=== PATIENT | female | born 2000 | race African-American/Black ===

== ENCOUNTER 2021-03-04 03:30 | Emergency (ER) | payer OTHER ==
[~2021-03-04] VITALS: Ht 149.9 cm; Wt 88.9 kg
[2021-03-04 04:02] LABS: ABSOLUTE EOSINOPHILS 0.2 thou/uL (0.0-0.7); ABSOLUTE LYMPHOCYTES 1.8 thou/uL (0.8-5.3); ABSOLUTE MONOCYTES 0.5 thou/uL (0.0-1.2); ABSOLUTE NEUTROPHILS 5.2 thou/uL (1.6-8.1); BASOPHILS 0.6 %; EOSINOPHILS 2.1 %; HEMATOCRIT 37.2 % (37.0-47.0); HEMOGLOBIN 12.7 gm/dL (12.0-15.0); LYMPHOCYTES 22.9 %; MCH 29.9 pg (26.0-34.0); MCHC 34.1 g/dL (28.0-37.0); MCV 87.6 fL (80.0-100.0); MONOCYTES 6.8 %; MPV 7.8 fl. (7.2-11.1); NUCLEATED RBCS 0 /100WBC; PLATELET COUNT* 266 thou/uL (150-400); POLYS 67.6 %; RBC 4.24 mil/uL (4.20-5.00); RDW-CV 13.3 % (10.5-14.5); WBC 7.7 thou/uL (4.0-11.0)
[2021-03-04 04:13] LABS: CALCIUM 8.6 mg/dL (8.5-10.1); CREATININE 0.8 mg/dL (0.6-1.3); POTASSIUM 3.5 mmol/L (3.5-5.1)
[2021-03-04 04:17] LABS: ALBUMIN 3.8 g/dL (3.4-5.0); TOTAL BILIRUBIN 0.2 mg/dL (<0.1-1.0); TOTAL PROTEIN 7.4 g/dL (6.4-8.2)
[2021-03-04 04:19] LABS: PROTIME 10.3 Seconds (9.20-11.50)
[2021-03-04 04:48] LABS: URINE BLOOD 3+ (Negative); URINE CLARITY CLEAR; URINE COLOR DARK YELLOW; URINE GLUCOSE-RANDOM NEGATIVE (Negative); URINE KETONES NEGATIVE (Negative); URINE LEUKOCYTES-REFLEX TRACE (Negative); URINE NITRITE-REFLEX NEGATIVE (Negative); URINE PROTEIN 2+ (Negative); URINE SPECIFIC GRAVITY 1.025 (1.005-1.030); URINE UROBILINOGEN 0.2 E.U./dl (0.2-1.0)
[2021-03-04 04:49] LABS: URINE BILIRUBIN 1+ (Negative)
[2021-03-04 04:52] LABS: ICTOTEST (BILI CONFIRMATORY) Negative (Negative)
[2021-03-04 05:18] VITALS: BP 133/89
[2021-03-04 05:42] LABS: CASTS None Seen /LPF (None Seen); MUCUS 0-3 Light strn/LPF (None Seen); SQUAMOUS >10 Many /LPF (0-3)
[2021-03-04 05:43] LABS: URINE WBC-REFLEX 6-15 Few /HPF (0-5)
[2021-03-04 05:44] LABS: CRYSTALS None Seen /LPF (None Seen)
--- NOTE | 2021-03-05 13:52 | EKG ---
[place] [address] ELECTROCARDIOGRAM REPORT Name: AURELIO BECK Room: [facility]#: [id number] Admission: 03/04/21 Attend Phys: Discharge: 03/04/21 Date of : [birth year] Date of Service: 03/04/21 0336 Report #: [id number] THIS REPORT FOR: //name// [facility] ED Test Date: 2021-03-04 Test Time: 03:36:49 Pat Name: AURELIO ACELEY Department: Room: Gender: [employer]ic: CAROL : 2000 Requested By: Oliva Landeros Order Number: [id number] MD: Shane Reynoso Measurements Intervals [place] Rate: 83 P: 34 MS: 126 QRS: 23 QRSD: 82 T: 3 QT: 367 QTc: 432 Interpretive Statements Sinus rhythm No previous ECG available for comparison Electronically Signed On 03-05-2021 13:52:10 CDT by Shane Reynoso [email or web address] <ELECTRONICALLY SIGNED> By: Shane Reynoso MD, [facility] 03/05/21 1352 [id number] 0336 Shane Reynoso MD, FACC /EPI
== END 2021-03-04 05:21 | disposition home or self-care (01) ==
LOC: M.ERS 03:30
PROVIDERS: Personal Emergency Response Attendant
DX: R07.89 Other chest pain (principal); Z88.6 Allergy status to analgesic agent